=== PATIENT | male | born 1925 | race Caucasian/White ===

== ENCOUNTER 2017-05-18 06:49 | Emergency (ER) | payer MEDICARE, OTHER ==
--- NOTE | 2017-05-18 08:26 | RAD ---
INDICATION: Trauma bilateral hip pain. COMPARISON: There are no prior studies available for comparison. TECHNIQUE: An AP view of the pelvis and frontal and lateral views of both hips were obtained. FINDINGS: The bones are normal alignment. No fracture is seen. There is mild to moderate bilateral osteoarthritic change in the hips. IMPRESSION: NO EVIDENCE FOR FRACTURE, IF THE PATIENT'S SYMPTOMS PERSIST RECOMMEND FOLLOW-UP IMAGING.
--- NOTE | 2017-05-18 08:33 | RAD ---
INDICATION: Trauma, bilateral knee pain. TECHNIQUE: 3 views of both knees were obtained. FINDINGS: The patient is status post total bilateral knee replacement surgery. The bones and prostheses are in normal alignment. No fracture is seen. There is no gross evidence for loosening. IMPRESSION: STATUS POST TOTAL BILATERAL KNEE REPLACEMENT SURGERY, NO EVIDENCE FOR FRACTURE.
[2017-05-18 09:44] VITALS: BP 134/59
--- NOTE | 2017-05-19 09:09 | ED ---
Titi Voss Thomas scribed for Dimitris Ha MD on 05/18/17 at 0724 . Lower Extremity - HPI Summary HPI Summary: The patient is an 89 year old male with dementia brought in by ambulance after he was found on the floor at his bedside after a presumed fall. He has some pain in the right hip. He has abrasions to his bilateral knees. LEVEL 5 CAVEAT: HPI LIMITED BY DEMENTIA - History of Current Complaint Chief Complaint: EDExtremityLower Stated Complaint: RT HIP PAIN Time Seen by Provider: 05/18/17 07:17 Hx Obtained From: EMS Hx From Patient Unobtainable Due To: Dementia Mechanism Of Injury: Fall From A Standing Position Pain Intensity: 0 Pain Scale Used: 0-10 Numeric Timing: Constant Location: Is Discrete @ - right hip pain Associated Signs And Symptoms: Positive: Other - abrasions bilateral knees. Negative: Fever - Allergies/Home Medications Allergies/Adverse Reactions: Allergies Allergy/AdvReac Type Severity Reaction Status Date / Time MS Penicillins [PCN] Allergy Intermediate Rash Verified 05/18/17 06:58 Home Medications: Home Medications Acetaminophen TAB* [Tylenol TAB*] 325 mg PO Q4H PRN 05/18/17 [History Confirmed 05/18/17] Carbidopa/Levodop 25/100 MG(*) [Sinemet 25/100 TAB(*)] 1 tab PO TID 05/18/17 [ History Confirmed 05/18/17] Cholecalciferol (Vitamin D3) [Vitamin D3] 1,000 unit PO DAILY 05/18/17 [History Confirmed 05/18/17] Fludrocortisone Acetate TAB* [Florinef TAB*] 0.1 mg PO DAILY 05/18/17 [History Confirmed 05/18/17] Magnesium Hydroxide LIQ* [Milk of Magnesia LIQ*] 30 ml PO DAILY PRN 05/18/17 [ History Confirmed 05/18/17] Multivitamins/Minerals TAB* [Theragran/minerals TAB*] 1 tab PO DAILY 05/18/17 [ History Confirmed 05/18/17] guaiFENesin [Guaifenesin] 10 ml PO Q4HR PRN 05/18/17 [History Confirmed 05/18/17 ] PMH/Surg Hx/FS Hx/Imm Hx History: Reports: Hx Kidney Stones - hx of Musculoskeletal History: Reports: Hx Arthritis - KNEES- HAD BILATERAL KNEE REPLACEMENTS, Hx Bursitis Sensory History: Reports: Hx Contacts or Glasses - RADING Denies: Hx Hearing Aid Opthamlomology History: Reports: Hx Contacts or Glasses - RADING Neurological History: Reports: Hx Dementia Psychiatric History: Comment Only: Other Psychiatric Issues/Disorders - DEMENTIA - Cancer History Cancer Type, 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 - Surgical History Surgery Procedure, Year, and Place: bilateral knee replacement; rotator cuff right Hx Anesthesia Reactions: No Infectious Disease History: Unable to Obtain/Confirm Infectious Disease History: Denies: Traveled Outside the [place] in Last 30 Days - Family History Known Family History: Positive: Unknown - FHx limited by dementia--LEVEL 5 CAVEAT - Social History Occupation: Unemployed Lives: [facility] Use Type: Reports: None Review of Systems Negative: Fever Positive: Other - Right hip pain All Other Systems Reviewed And Are Negative: No - Comments Additional Review of Systems Comments: LEVEL 5 CAVEAT: ROS LIMITED BY DEMENTIA Physical Exam - Summary Physical Exam Summary: VITAL SIGNS: Reviewed. GENERAL: Patient is an elderly male who is lying comfortable in the stretcher. Patient is not in any acute respiratory distress. HEAD AND FACE: No signs of trauma. No ecchymosis, hematomas or skull depressions. No sinus tenderness. EYES: PERRLA, EOMI x 2, No injected conjunctiva, no nystagmus. EARS: Hearing grossly intact. Ear canals and tympanic membranes are within normal limits. MOUTH: Oropharynx within normal limits. NECK: Supple, trachea is midline, no adenopathy, no JVD, no carotid bruit, no c- spine tenderness, neck with full ROM. CHEST: Symmetric, no tenderness at palpation LUNGS: Clear to auscultation bilaterally. No wheezing or crackles. CVS: Regular rate and rhythm, S1 and S2 present, no murmurs or gallops appreciated. ABDOMEN: Soft, non-tender. No signs of distention. No rebound no guarding, and no masses palpated. Bowel sounds are normal. EXTREMITIES: He has abrasions in both knees. There is some pain in the right hip. Otherwise, FROM in all other major joints, no edema, no cyanosis or clubbing. NEURO: Alert. Speech is normal and follows commands. SKIN: Dry and warm LEVEL 5 CAVEAT: PHYSICAL EXAM LIMITED BY DEMENTIA Triage Information Reviewed: Yes Vital Signs On Initial Exam: Initial Vitals Temp Pulse Resp BP Pulse Ox 98.7 F 94 16 127/57 97 05/18/17 06:50 05/18/17 06:50 05/18/17 06:50 05/18/17 06:50 05/18/17 06:50 Vital Signs Reviewed: Yes Diagnostics - Vital Signs Vital Signs Temp Pulse Resp BP Pulse Ox 05/18/17 06:56 93 97 05/18/17 06:55 117/55 05/18/17 06:50 98.7 F 94 16 127/57 97 - Laboratory Lab Statement: Any lab studies that have been ordered have been reviewed, and results considered in the medical decision making process. - Radiology Bilateral Hip XR Xray Interpretation: No Acute Changes - NO EVIDENCE FOR FRACTURE, IF THE PATIENT 'S SYMPTOMS PERSIST RECOMMEND FOLLOW-UP IMAGING. Dr. Ha has reviewed this report. Radiology Interpretation Completed By: Radiologist Bilateral Knee XR Xray Interpretation: No Acute Changes - STATUS POST TOTAL BILATERAL KNEE REPLACEMENT SURGERY, NO EVIDENCE FOR FRACTURE. Dr. Ha has reviewed this report. Radiology Interpretation Completed By: Radiologist Lower Extremity Course/Dx - Course Assessment/Plan: The patient is an 89 year old male with dementia brought in by ambulance after he was found on the floor at his bedside after a presumed fall. He has some pain in the right hip. He has abrasions to his bilateral knees. X- ray shows no fracture or dislocation. The patient is able to move his extremities with mild pain, probably secondary to trauma. Since there is no fracture or dislocation, the patient will be discharged home to follow up with primary care. If the pain persists, then the patient should return to the ED or possibly do a CT to rule out a healing fracture. - Diagnoses Provider Diagnoses: Accidental fall, Knee pain Discharge - Discharge Plan Condition: Stable Disposition: HOME Patient Education Materials: Fall Prevention for Older Adults (ED), Knee Pain ( ED) Referrals: Dimitris Everett MD [Medical Doctor] - 3 Days Additional Instructions: Follow up with Dr. Everett in the next three days. Return to the emergency department for any new or worsening symptoms. The documentation as recorded by the Titi patrick Thomas accurately reflects the service I personally performed and the decisions made by Leland rivera Walter, MD.
== END 2017-05-18 09:43 | disposition home or self-care (01) ==
LOC: ED 06:49
DX: S80.212A Abrasion, left knee, initial encounter (principal); S80.211A Abrasion, right knee, initial encounter; W19.XXXA Unspecified fall, initial encounter; Y92.9 Unspecified place or not applicable; Z88.0 Allergy status to penicillin; Z96.653 Presence of artificial knee joint, bilateral
CPT/HCPCS: 73523; 99282

== ENCOUNTER 2017-08-01 21:12 | Inpatient (IN) | payer MEDICARE, OTHER ==
[2017-08-01] MEDS ORDERED: Amiodarone 360 MG IVPREMIX* 360 MG/200 ML BAG IV ONE (21:21)
[2017-08-01] MEDS ORDERED: NS 0.9% 1000 ML* 1,000 ML IV ONE (21:21)
[2017-08-01] MEDS ORDERED: Tetan/Diph/Pertus SYR(Tdap)* 0.5 ML SYR(BOOSTRIX) use SYR IM ONE (21:21)
[2017-08-01] MEDS ORDERED: Amiodarone 150 MG IVPREMIX* 150 MG/100 ML BAG IV ONE (21:21)
[2017-08-01] MEDS ORDERED: fentaNYL* 50 MCG/ML 2 ML VIAL (100 MCG VIAL) IV ONE (21:21)
[2017-08-01 21:46] LABS: ABS Basophils 0.1 10^3/ul (0-0.2); ABS Eosinophils 0.1 10^3/ul (0-0.6); ABS Monocytes 0.7 10^3/ul (0-0.8); ABS Neutrophils 5.3 10^3/ul (1.5-7.7); ABS Nucleated RBC 0 10^3/ul; Eosinophil % 1.3 % (0-6); Hematocrit 36 % (42-52); Hemoglobin 12.1 g/dl (14.0-18.0); Lymphocyte % 14.2 % (25-47); Mean Corpuscular HGB Conc 33 g/dl (31-36); Mean Corpuscular Hemoglobin 30 pg (27-31); Mean Corpuscular Volume 88 fL (80-94); Mean Platelet Volume 10.4 um3 (7.4-10.4); Nucleated Red Blood Cells % 0.1; Platelet Count 151 10^3/ul (150-450); Red Blood Count 4.09 10^6/ul (4.0-5.4); Red Cell Distribution Width 15 % (10.5-15); White Blood Count 7.1 10^3/ul (3.5-10.8)
[2017-08-01 22:03] LABS: INR 1.14 (0.77-1.02)
[2017-08-01 22:07] LABS: EGFR Non-African American 50.2 (>60)
--- NOTE | 2017-08-01 23:57 | ED ---
Lower Extremity - HPI Summary HPI Summary: 89-year-old male with extensive comorbidity to include parkinsonism and dementia presents by ambulance after fall in the snf. He is complaining of pain in his right hip. He has a dressed wound on his right ear. He denies any headache, chest or abdominal pain. The history is extremely limited due to his dementia. His mobility is poor due to his parkinsonism. - History of Current Complaint Chief Complaint: EDExtremityLower Stated Complaint: FALL Time Seen by Provider: 08/01/17 21:20 Hx Obtained From: Patient, EMS Pain Intensity: 8 - Allergies/Home Medications Allergies/Adverse Reactions: Allergies Allergy/AdvReac Type Severity Reaction Status Date / Time Penicillins Allergy Unknown Verified 08/01/17 21:37 Reaction Details Home Medications: Home Medications Acetaminophen TAB* [Tylenol TAB*] 650 mg PO Q4H PRN 08/01/17 [History Confirmed 08/01/17] Carbidopa/Levodop 25/100 MG(*) [Sinemet 25/100 TAB(*)] 1 tab PO TID 08/01/17 [ History Confirmed 08/01/17] Cholecalciferol TAB* [Vitamin D TAB*] 1,000 unit PO DAILY 08/01/17 [History Confirmed 08/01/17] Fludrocortisone Acetate TAB* [Florinef TAB*] 0.1 mg PO DAILY 08/01/17 [History Confirmed 08/01/17] Levofloxacin TAB* [Levaquin TAB*] 500 mg PO DAILY 08/01/17 [History Confirmed ] Magnesium Hydroxide LIQ* [Milk of Magnesia LIQ*] 30 ml PO DAILY PRN 08/01/17 [ History Confirmed 08/01/17] Multivitamins/Minerals TAB* [Theragran/minerals TAB*] 1 tab PO DAILY 08/01/17 [ History Confirmed 08/01/17] Potassium Chlor TAB* [Klor Con ER TAB*] 20 meq PO DAILY 08/01/17 [History Confirmed 08/01/17] PMH/Surg Hx/FS Hx/Imm Hx Previously Healthy: No - Parkinson's disease, dementia History: Reports: Hx Kidney Stones - hx of Musculoskeletal History: Reports: Hx Arthritis - KNEES- HAD BILATERAL KNEE REPLACEMENTS, Hx Bursitis Sensory History: Reports: Hx Contacts or Glasses - RADING Denies: Hx Hearing Aid Opthamlomology History: Reports: Hx Contacts or Glasses - RADING Neurological History: Denies: Other Neuro Impairments/Disorders - dementia Psychiatric History: Comment Only: Other Psychiatric Issues/Disorders - DEMENTIA - Cancer History Cancer Type, 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 Negative: Headache All Other Systems Reviewed And Are Negative: Yes Physical Exam Triage Information Reviewed: Yes Vital Signs On Initial Exam: Initial Vitals Pulse Resp Pulse Ox 115 16 92 08/01/17 21:19 08/01/17 21:19 08/01/17 21:19 Vital Signs Reviewed: Yes Completion Of Physical Exam Limited Due To: Dementia Appearance: Positive: Ill-Appearing, Pain Distress, Thin, Signs of Trauma Skin: Positive: Other - Skin tear in the posterior of the pinna of the right ear. Mild amount of oozing. Head/Face: Positive: Normal Head/Face Inspection Eyes: Positive: Other: - Pupils are small and sluggish ENT: Positive: Normal ENT inspection, Hearing grossly normal Neck: Positive: Supple, Nontender Respiratory/Lung Sounds: Positive: Other - Diminished globally. Mild scattered rhonchi Cardiovascular: Negative: Normal - Irregularly irregular with runs of PVCs or ventricular tachycardia on the monitor Abdomen Description: Positive: Nontender Musculoskeletal: Positive: Other - Pain with manipulation of both lower extremities but patient complains subjectively of pain in the right hip. No foreshortening. Neurological: Positive: Other - Global weakness without focality. Alert and oriented to person and place only. Unable to ambulate due to hip pain Psychiatric: Negative: Affect/Mood Appropriate - Flat affect Diagnostics - Vital Signs Vital Signs Temp Pulse Resp BP Pulse Ox 08/01/17 23:35 106 29 148/99 84 08/01/17 23:09 18 08/01/17 22:42 96 19 119/93 90 08/01/17 22:19 99 15 138/95 96 08/01/17 22:04 98 F 90 18 126/85 96 08/01/17 22:02 101 15 126/85 95 08/01/17 22:00 98 15 97 08/01/17 21:57 98 15 134/71 96 08/01/17 21:50 106 15 141/110 97 08/01/17 21:45 17 08/01/17 21:20 103 16 115/82 93 08/01/17 21:19 115 16 92 - Laboratory Lab Results: Lab Results 08/01/17 08/01/17 08/01/17 Range/Units 21:35 21:35 21:35 WBC 7.1 (3.5-10.8) 10^3/ul RBC 4.09 (4.0-5.4) 10^6/ul Hgb 12.1 L (14.0-18.0) g/dl Hct 36 L (42-52) % MCV 88 (80-94) fL MCH 30 (27-31) pg MCHC 33 (31-36) g/dl RDW 15 (10.5-15) % Plt Count 151 (150-450) 10^3/ul MPV 10.4 (7.4-10.4) um3 Neut % (Auto) 74.0 (38-83) % Lymph % (Auto) 14.2 L (25-47) % Traill % (Auto) 9.6 H (0-7) % Eos % (Auto) 1.3 (0-6) % Baso % (Auto) 0.9 (0-2) % Absolute Neuts (auto) 5.3 (1.5-7.7) 10^3/ul Absolute Lymphs (auto) 1.0 (1.0-4.8) 10^3/ul Absolute Monos (auto) 0.7 (0-0.8) 10^3/ul Absolute Eos (auto) 0.1 (0-0.6) 10^3/ul Absolute Basos (auto) 0.1 (0-0.2) 10^3/ul Absolute Nucleated RBC 0 10^3/ul Nucleated RBC % 0.1 INR (Anticoag Therapy) 1.14 H (0.77-1.02) APTT 29.8 (26.0-36.3) seconds Sodium 144 (139-145) mmol/L Potassium 3.6 (3.5-5.0) mmol/L Chloride 108 (101-111) mmol/L Carbon Dioxide 28 (22-32) mmol/L Anion Gap 8 (2-11) mmol/L BUN 18 (6-24) mg/dL Creatinine 1.34 H (0.67-1.17) mg/dL Est GFR ( Amer) 64.5 (>60) Est GFR (Non-Af Amer) 50.2 (>60) BUN/Creatinine Ratio 13.4 (8-20) Glucose 148 H (70-100) mg/dL Lactic Acid (0.5-2.0) mmol/L Calcium 9.7 (8.6-10.3) mg/dL Total Bilirubin 0.90 (0.2-1.0) mg/dL AST 22 (13-39) U/L ALT 8 (7-52) U/L Alkaline Phosphatase 70 (34-104) U/L Total Creatine Kinase 83 (10-223) U/L Troponin I 0.06 H* (<0.04) ng/mL Total Protein 6.6 (6.4-8.9) g/dL Albumin 3.9 (3.2-5.2) g/dL Globulin 2.7 (2-4) g/dL Albumin/Globulin Ratio 1.4 (1-3) Blood Type Antibody Screen 08/01/17 08/01/17 Range/Units 21:35 21:35 WBC (3.5-10.8) 10^3/ul RBC (4.0-5.4) 10^6/ul Hgb (14.0-18.0) g/dl Hct (42-52) % MCV (80-94) fL MCH (27-31) pg MCHC (31-36) g/dl RDW (10.5-15) % Plt Count (150-450) 10^3/ul MPV (7.4-10.4) um3 Neut % (Auto) (38-83) % Lymph % (Auto) (25-47) % Traill % (Auto) (0-7) % Eos % (Auto) (0-6) % Baso % (Auto) (0-2) % Absolute Neuts (auto) (1.5-7.7) 10^3/ul Absolute Lymphs (auto) (1.0-4.8) 10^3/ul Absolute Monos (auto) (0-0.8) 10^3/ul Absolute Eos (auto) (0-0.6) 10^3/ul Absolute Basos (auto) (0-0.2) 10^3/ul Absolute Nucleated RBC 10^3/ul Nucleated RBC % INR (Anticoag Therapy) (0.77-1.02) APTT (26.0-36.3) seconds Sodium (139-145) mmol/L Potassium (3.5-5.0) mmol/L Chloride (101-111) mmol/L Carbon Dioxide (22-32) mmol/L Anion Gap (2-11) mmol/L BUN (6-24) mg/dL Creatinine (0.67-1.17) mg/dL Est GFR ( Amer) (>60) Est GFR (Non-Af Amer) (>60) BUN/Creatinine Ratio (8-20) Glucose (70-100) mg/dL Lactic Acid 1.7 (0.5-2.0) mmol/L Calcium (8.6-10.3) mg/dL Total Bilirubin (0.2-1.0) mg/dL AST (13-39) U/L ALT (7-52) U/L Alkaline Phosphatase (34-104) U/L Total Creatine Kinase (10-223) U/L Troponin I (<0.04) ng/mL Total Protein (6.4-8.9) g/dL Albumin (3.2-5.2) g/dL Globulin (2-4) g/dL Albumin/Globulin Ratio (1-3) Blood Type O Positive Antibody Screen Negative Result Diagrams: 08/01/17 21:35 08/01/17 21:35 Lab Statement: Any lab studies that have been ordered have been reviewed, and results considered in the medical decision making process. - Radiology chest x-ray Xray Interpretation: Positive (See Comments) Radiology Interpretation Completed By: ED Physician No standard instances Xray Interpretation: Positive (See Comments) - Right hip and pelvis films: Left femoral neck fracture Radiology Interpretation Completed By: ED Physician - EKG No standard instances Cardiac Rate: Tachycardia - 101 EKG Rhythm: Sinus Tachycardia - With short run of PVCs or VT ST Segment: Non-Specific Ectopy: PVCs EKG Interpretation: sinus tachycardia with runs of nonsustained V. tach Re-Evaluation - Re-Evaluation First Eval Change: Unchanged Lower Extremity Course/Dx - Course Course Of Treatment: Patient is critically ill-appearing with runs of V. tach likely causative of his fall. He also has a hip fracture in his left side despite complaint of pain in the right side. Orthopedics was consulted and saw the patient in the ER. Chest x-ray looks like metastatic disease. This conveyed to the hospitalist who is admitting. The patient was also placed on amiodarone drip after getting a 150 mg bolus to start. 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 He likely will require ICU care for these issues. - Diagnoses Provider Diagnoses: Fracture of femoral neck, left, closed, Ventricular tachycardia, non-sustained , Lung metastases - Physician Notifications Discussed Care Of Patient With: Obdulia Shannon - orthopedic surgeon saw in the ER. Hospitalist Dr. Nascimento will admit Instructed by Provider To: Admit As Inpatient - Critical Care Time Critical Care Time: 30-74 min - Critical care time is exclusive of separately billable procedures Discharge - Sign-Out/Discharge Documenting (check all that apply): Discharge/Admit/Transfer - Discharge Plan Condition: Guarded Disposition: ADMITTED TO [facility] Referrals: Lulu Jules MD [Primary Care Provider] - - Billing Disposition and Condition Condition: GUARDED Disposition: [facility] [place]
[2017-08-02] MEDS ORDERED: Acetaminophen TAB* 325 MG PO PRN (00:28)
[2017-08-02] MEDS ORDERED: Ondansetron INJ* 2 MG/ML VIAL IV PRN (00:29)
[2017-08-02] MEDS ORDERED: CMCS: Melatonin (NF) 3 MG TAB PO PRN (00:29)
[2017-08-02] MEDS ORDERED: traMADol TAB* 50 MG PO PRN (00:29)
[2017-08-02] MEDS ORDERED: oxyCODONE TAB* 5 MG TAB PO PRN (00:29)
[2017-08-02] MEDS ORDERED: NS 0.9% 1000 ML* 1,000 ML IV SCH (00:30)
[2017-08-02] MEDS ORDERED: Levofloxacin 750 MG IVPREMIX(* 750 MG/150 ML BAG IVPB SCH (01:45)
--- NOTE | 2017-08-02 02:00 | CONS ---
EMERGENCY ROOM CONSULTATION NOTE: DATE OF CONSULTATION: 08/01/17 Thank you for this orthopedic consultation. CHIEF COMPLAINT: Right hip pain. HISTORY OF PRESENT ILLNESS: Mr. Medeiros is an 89-year-old gentleman who reports the acute onset of right hip pain. He has Parkinson's and dementia, so history is difficult to obtain. The patient denies a fall, but staff at [facility] report a fall. He reports that he normally ambulates independently. He reported right hip pain and was unable to ambulate after the fall. He was brought to [facility]. I am called for a femoral neck fracture by the ED physician. PAST MEDICAL HISTORY: 1. Dementia. 2. Parkinson's disease. 3. Osteoarthritis. PAST SURGICAL HISTORY: 1. ACL repair, left knee. 2. Shoulder surgery, unspecified type. 3. Prostate surgery, unspecified type. 4. Sinus surgery, unspecified type. MEDICATION LIST: 1. Sinemet 25/100 po TID 2. Floricef 0.1 mg po qdaily 3. Levaquin 500 mg po qdaily 4. Potassium chloride 20 meq po qdaily ALLERGIES: penicillin FAMILY HISTORY: Negative or noncontributory. SOCIAL HISTORY: The patient is retired and reports he lives with his at [facility]. No tobacco, alcohol or recreational drug use. The patient reports he ambulates independently. REVIEW OF SYSTEMS: Positive for right hip pain, left hip pain. The patient reports feeling chills and cold, he denies chest pain, heart palpitations, shortness of breath, nausea, vomiting, headache or dizziness. Otherwise, review of systems is negative or not relevant. PHYSICAL EXAM: Vital Signs: Temperature 98, heart rate 94, blood pressure 148/ 99. HEENT: Atraumatic, normocephalic. Pupils are equal and reactive to light. Neck: Trachea midline. Neck: Supple. Chest: Unlabored breathing. Abdomen : Soft, nontender, nondistended. Bilateral upper extremities; no open wounds, no bony tenderness to palpation. 4+/5 merchant mariner strength, 2+ palpable radial pulses. Bilateral lower extremity exam shows skin to be intact. There is a healed left midline knee incision. No palpable masses or hematomas. I can flex both hips to about 90 degrees before he reports some pain. I can rotate 0 degrees internal rotation bilaterally, 35 degrees external rotation bilaterally with minimal pain. When I log roll the patient's leg, there is minimal pain. He demonstrates dorsiflexion and plantar flexion strength. 2+ palpable DP pulses. He reports full sensation to light touch in all nerve distributions. DIAGNOSTIC STUDIES/LAB DATA: Laboratory values drawn on 08/01/17 show white blood cell 7.1, hematocrit 36, platelets 151,000. No left shift. INR 1.14. Sodium 144, potassium 3.6, chloride 108. BUN and creatinine 18 and 1.34 respectively. Troponin 0.06. Alk phos is 70. Radiographs have poor AP pelvis and AP lateral view of the right hip to review. The patient's AP pelvis shows no obvious fracture of the right hip. There is an abnormal rotation in the left hip. I cannot exclude a femoral neck fracture. AP and lateral views of the right hip show some arthritic changes, but no obvious fracture of the right hip. There is a chest x-ray without a formal Radiology read that does show possible tumor metastasis when reviewed with the hospitalist. ASSESSMENT AND PLAN: Mr. Medeiros is an 89-year-old gentleman from [facility] with dementia and Parkinson's disease. History is limited tonight. He reports he normally ambulates independently. He had a fall at [facility] per reports and demonstrated right hip pain after with inability to ambulate. Although the patient reports pain in the hips, his range of motion is abnormally good for a patient with a hip fracture. Hospitalist team and I discussed this. Due to possibility of undiagnosed cancer and metastasis to the lungs, they are going to obtain a CT of the chest, abdomen, and pelvis. Evaluation of the CT of the pelvis will give us a definitive answer on whether or not the patient has any hip pathology or other nondisplaced fractures. I will of course review this immediately. For now, he will be on bedrest. He has a Feliciano catheter. He will have p.r.n. analgesia. The hospitalist team was admitting and of course he will be worked up for the abnormal chest x-ray and recent V-tach in the emergency room. Orthopedics will be glad to follow. ADDENDUM: Pelvic CT is reviewed and shows no fracture of the bilateral femoral neck. Minimally displaced right superior and inferior rami fractures are noted. The patient should be wbat RLE with mobilization with PT/OT when medically stable. Orthopedics will follow. [id number]/CPS #: [id number] FADI
[2017-08-02 04:41] LABS: ABS Basophils 0.1 10^3/ul (0-0.2); ABS Eosinophils 0 10^3/ul (0-0.6); ABS Lymphocytes 0.7 10^3/ul (1.0-4.8); ABS Monocytes 0.7 10^3/ul (0-0.8); ABS Neutrophils 9.8 10^3/ul (1.5-7.7); ABS Nucleated RBC 0 10^3/ul; Eosinophil % 0.1 % (0-6); Hematocrit 33 % (42-52); Hemoglobin 10.7 g/dl (14.0-18.0); Lymphocyte % 5.9 % (25-47); Mean Corpuscular HGB Conc 33 g/dl (31-36); Mean Corpuscular Hemoglobin 29 pg (27-31); Mean Corpuscular Volume 89 fL (80-94); Nucleated Red Blood Cells % 0; Platelet Count 135 10^3/ul (150-450); Red Cell Distribution Width 16 % (10.5-15); White Blood Count 11.3 10^3/ul (3.5-10.8)
[2017-08-02] MEDS: Amiodarone 360 MG IVPREMIX* 360 MG/200 ML BAG IV SCH ×2 (04:47→17:34)
[2017-08-02] MEDS: Omeprazole CAP* 20 MG PO SCH (04:55)
[2017-08-02 04:57] LABS: EGFR Non-African American 51.5 (>60)
--- NOTE | 2017-08-02 05:36 | HP ---
H&P (Free Text) History and Physical: PCP: Harini Jules MD Date/Time: 08/01/2017 5029 CC: fall, R hip pain HPI: Mr Medeiros is an 89YO male resident of [facility] Parkinsonism, Alzheimer's , adrenal insufficiency, & squamous cell CA of the mandible presents after a fall with complaint of R hip pain. Upon my evaluation, he does not recall the events of the evening or why he is here. He denied pain or other complaint. While in the ED, he proceeded to dislodge IVs and pull out his hager resulting in moderate urethral bleeding. After arriving to the ICU, nurses were unable to replace the hager. I attempted to place a 3-way hager in case CBI was needed, but could not. Likewise, I was unable to place a crudet tip hager. Bladder scan revealed 150-200cc volume. Shortly later, ICU nursing reported he was able to spontaneously urinate. Sundar Shannon MD orthopedics evaluated in ED & will follow. He received a chest XRY suspicious for metastatic disease given the absence of findings suggesting infection. A CT chest/abd/pel W will be ordered and as his pelvic films reveal no overt FX, will evaluate for occult FX. While in the ED he had repetitive bursts of NSVT prompting initiation of amiodarone bolus/GTT with good suppression. PMedHx Parkinsonism Alzheimer's adrenal insufficiency squamous cell CA of mandible BPH s/p TURP Ambulatory Orders Acetaminophen TAB* [Tylenol TAB*] 650 mg PO Q4H PRN 08/01/17 Carbidopa/Levodop 25/100 MG(*) [Sinemet 25/100 TAB(*)] 1 tab PO TID 08/01/17 Cholecalciferol TAB* [Vitamin D TAB*] 1,000 unit PO DAILY 08/01/17 Fludrocortisone Acetate TAB* [Florinef TAB*] 0.1 mg PO DAILY 08/01/17 Levofloxacin TAB* [Levaquin TAB*] 500 mg PO DAILY 08/01/17 Magnesium Hydroxide LIQ* [Milk of Magnesia LIQ*] 30 ml PO DAILY PRN 08/01/17 Multivitamins/Minerals TAB* [Theragran/minerals TAB*] 1 tab PO DAILY 08/01/17 Potassium Chlor TAB* [Klor Con ER TAB*] 20 meq PO DAILY 08/01/17 Allergies Penicillins Allergy (Verified 08/01/17 21:37) Unknown Reaction Details SocHx: no tobacco, alcohol, or recreational drugs; , resides at [place]; retired; DNR code status FamHx: unobtainable ROS: as above, otherwise reviewed and all were negative vitals: Vital Signs Temp 37.4 C 08/02/17 04:00 Pulse 83 08/02/17 05:01 Resp 24 08/02/17 05:01 BP 115/100 08/02/17 05:01 Pulse Ox 89 08/02/17 05:01 Intake & Output 08/01/17 08/01/17 08/02/17 11:59 23:59 11:59 Intake Total 100 1200 Balance 100 1200 Weight 77.111 kg Intake: IV Fluids 100 1200 Constitutional: NAD, normally developed, well-nourished elderly white male HEENM: atraumatic; sclera/conjunctiva: anicteric/clear; hearing: clinically mild to moderately decreased; oropharynx: clear, moist Neck: soft tissue: non-tender; thyroid: normal Pulmonary: diminished bilaterally, good aeration, no accessory muscle use CV: RR/RR, normal S1S2, no carotid bruit, no jugular venous distention, 2+ B DP/ PT, trace BLE edema Abdominal: soft, non-distended, non-tender, no rebound/guarding/rigidity, normoactive bowel sounds, no hepatosplenomegaly or masses, no costovertebral angle tenderness Musculoskeletal: general: grossly intact with reasonable painless ROM, no overt deformity Integumental: small skin tear posterior R auricle Psychiatric orientation: AA&O to person only affect: calm mood: acquiescent eye contact: poor content: unreliable memory: markedly impaired to recent responses: mildly slowed insight: poor Testing: Lab Results 08/01/17 08/01/17 08/01/17 Range/Units 21:35 21:35 21:35 WBC 7.1 (3.5-10.8) 10^3/ul RBC 4.09 (4.0-5.4) 10^6/ul Hgb 12.1 L (14.0-18.0) g/dl Hct 36 L (42-52) % MCV 88 (80-94) fL MCH 30 (27-31) pg MCHC 33 (31-36) g/dl RDW 15 (10.5-15) % Plt Count 151 (150-450) 10^3/ul MPV 10.4 (7.4-10.4) um3 Neut % (Auto) 74.0 (38-83) % Lymph % (Auto) 14.2 L (25-47) % [place] % (Auto) 9.6 H (0-7) % Eos % (Auto) 1.3 (0-6) % Baso % (Auto) 0.9 (0-2) % Absolute Neuts (auto) 5.3 (1.5-7.7) 10^3/ul Absolute Lymphs (auto) 1.0 (1.0-4.8) 10^3/ul Absolute Monos (auto) 0.7 (0-0.8) 10^3/ul Absolute Eos (auto) 0.1 (0-0.6) 10^3/ul Absolute Basos (auto) 0.1 (0-0.2) 10^3/ul Absolute Nucleated RBC 0 10^3/ul Nucleated RBC % 0.1 INR (Anticoag Therapy) 1.14 H (0.77-1.02) APTT 29.8 (26.0-36.3) seconds Sodium 144 (139-145) mmol/L Potassium 3.6 (3.5-5.0) mmol/L Chloride 108 (101-111) mmol/L Carbon Dioxide 28 (22-32) mmol/L Anion Gap 8 (2-11) mmol/L BUN 18 (6-24) mg/dL Creatinine 1.34 H (0.67-1.17) mg/dL Est GFR ( Amer) 64.5 (>60) Est GFR (Non-Af Amer) 50.2 (>60) BUN/Creatinine Ratio 13.4 (8-20) Glucose 148 H (70-100) mg/dL Lactic Acid (0.5-2.0) mmol/L Calcium 9.7 (8.6-10.3) mg/dL Magnesium 2.0 (1.9-2.7) mg/dL Total Bilirubin 0.90 (0.2-1.0) mg/dL AST 22 (13-39) U/L ALT 8 (7-52) U/L Alkaline Phosphatase 70 (34-104) U/L Total Creatine Kinase 83 (10-223) U/L Troponin I 0.06 H* (<0.04) ng/mL Total Protein 6.6 (6.4-8.9) g/dL Albumin 3.9 (3.2-5.2) g/dL Globulin 2.7 (2-4) g/dL Albumin/Globulin Ratio 1.4 (1-3) Blood Type Antibody Screen 08/01/17 08/01/17 08/02/17 Range/Units 21:35 21:35 04:30 WBC (3.5-10.8) 10^3/ul RBC (4.0-5.4) 10^6/ul Hgb (14.0-18.0) g/dl Hct (42-52) % MCV (80-94) fL MCH (27-31) pg MCHC (31-36) g/dl RDW (10.5-15) % Plt Count (150-450) 10^3/ul MPV (7.4-10.4) um3 Neut % (Auto) (38-83) % Lymph % (Auto) (25-47) % [place] % (Auto) (0-7) % Eos % (Auto) (0-6) % Baso % (Auto) (0-2) % Absolute Neuts (auto) (1.5-7.7) 10^3/ul Absolute Lymphs (auto) (1.0-4.8) 10^3/ul Absolute Monos (auto) (0-0.8) 10^3/ul Absolute Eos (auto) (0-0.6) 10^3/ul Absolute Basos (auto) (0-0.2) 10^3/ul Absolute Nucleated RBC 10^3/ul Nucleated RBC % INR (Anticoag Therapy) (0.77-1.02) APTT (26.0-36.3) seconds Sodium 141 (139-145) mmol/L Potassium TNP (3.5-5.0) mmol/L Chloride 107 (101-111) mmol/L Carbon Dioxide 26 (22-32) mmol/L Anion Gap 8 (2-11) mmol/L BUN 18 (6-24) mg/dL Creatinine 1.31 H (0.67-1.17) mg/dL Est GFR ( Amer) 66.3 (>60) Est GFR (Non-Af Amer) 51.5 (>60) BUN/Creatinine Ratio 13.7 (8-20) Glucose 170 H (70-100) mg/dL Lactic Acid 1.7 (0.5-2.0) mmol/L Calcium 9.1 (8.6-10.3) mg/dL Magnesium (1.9-2.7) mg/dL Total Bilirubin (0.2-1.0) mg/dL AST (13-39) U/L ALT (7-52) U/L Alkaline Phosphatase (34-104) U/L Total Creatine Kinase (10-223) U/L Troponin I 0.13 H* (<0.04) ng/mL Total Protein (6.4-8.9) g/dL Albumin (3.2-5.2) g/dL Globulin (2-4) g/dL Albumin/Globulin Ratio (1-3) Blood Type O Positive Antibody Screen Negative 08/02/17 Range/Units 04:30 WBC 11.3 H (3.5-10.8) 10^3/ul RBC 3.70 L (4.0-5.4) 10^6/ul Hgb 10.7 L (14.0-18.0) g/dl Hct 33 L (42-52) % MCV 89 (80-94) fL MCH 29 (27-31) pg MCHC 33 (31-36) g/dl RDW 16 H (10.5-15) % Plt Count 135 L (150-450) 10^3/ul MPV 10.0 (7.4-10.4) um3 Neut % (Auto) 86.6 H (38-83) % Lymph % (Auto) 5.9 L (25-47) % [place] % (Auto) 6.3 (0-7) % Eos % (Auto) 0.1 (0-6) % Baso % (Auto) 1.1 (0-2) % Absolute Neuts (auto) 9.8 H (1.5-7.7) 10^3/ul Absolute Lymphs (auto) 0.7 L (1.0-4.8) 10^3/ul Absolute Monos (auto) 0.7 (0-0.8) 10^3/ul Absolute Eos (auto) 0 (0-0.6) 10^3/ul Absolute Basos (auto) 0.1 (0-0.2) 10^3/ul Absolute Nucleated RBC 0 10^3/ul Nucleated RBC % 0 INR (Anticoag Therapy) (0.77-1.02) APTT (26.0-36.3) seconds Sodium (139-145) mmol/L Potassium (3.5-5.0) mmol/L Chloride (101-111) mmol/L Carbon Dioxide (22-32) mmol/L Anion Gap (2-11) mmol/L BUN (6-24) mg/dL Creatinine (0.67-1.17) mg/dL Est GFR ( Amer) (>60) Est GFR (Non-Af Amer) (>60) BUN/Creatinine Ratio (8-20) Glucose (70-100) mg/dL Lactic Acid (0.5-2.0) mmol/L Calcium (8.6-10.3) mg/dL Magnesium (1.9-2.7) mg/dL Total Bilirubin (0.2-1.0) mg/dL AST (13-39) U/L ALT (7-52) U/L Alkaline Phosphatase (34-104) U/L Total Creatine Kinase (10-223) U/L Troponin I (<0.04) ng/mL Total Protein (6.4-8.9) g/dL Albumin (3.2-5.2) g/dL Globulin (2-4) g/dL Albumin/Globulin Ratio (1-3) Blood Type Antibody Screen ECG, personally reviewed: sinus tachycardia rate 101 w/ recurrent short-bursts of VT, mild ST depression V4-6 CXR, personally reviewed: B patchy infiltrate concerning for metastatic disease given his HX, pneumonia cannot be excluded CT brain WO, personally reviewed: IMPRESSION: Scalp laceration without skull fracture or intracranial hemorrhage CT C-spine WO: IMPRESSION: No fracture. Suspected large bilateral pleural effusions can be further evaluated with chest radiographs or CT. XRY pelvis & R hip, personally reviewed: no obvious FX of painful R hip, concern for painless FX L hip Impression: 89M presenting with fall & R hip pain which appears to be well controlled found to be having recurrent short bursts of VT, no obvious hip FX, positive urethral trauma 2nd self-D/C'd hager catheter, & abnormal CXR concerning for metastatic disease DIAGNOSIS & PLAN Primary fall & R hip pain : no obvious hip FX : Sundar Shannon MD orthopedic surgery consulted in ED, will follow : pain control : CT pelvis to evaluate for occult FX : supportive care recurrent short bursts of VT : amodarone bolus/GTT : consider cardiology consult in AM urethral trauma 2nd self-D/C'd hager catheter : Q2H bladder scans to evaluation for excessive distention : if unable to adequately void or if bleeding continues, consider urology consult in AM : recheck H&H in AM abnormal CXR : concerning for metastatic disease given HX SCCA of mandible & absence of evidence of infection : CT chest/abd/pel W : empiric IV levofloxacin : blood & sputum CXs : check Legionella & S pneumo urinary antigens : check rapid influenza elevated troponin : suspect demand ischemia : telemetry : trend Secondary Parkinsonism : review meds once reconciled Alzheimer's : review meds once reconciled CKD stg 3b : periodic monitoring Admission Rational: inpatient for recurrent NSVT, elevated troponin, fall ? occult hip FX, abnormal CXR; inappropriate for outpatient setting DVTp: SCDs Code Status: DNR HCP:
[2017-08-02] MEDS ORDERED: Potassium Chloride LIQUID* 20 MEQ PACKET PO ONE (07:42)
--- NOTE | 2017-08-02 07:48 | RAD ---
HISTORY: Head injury COMPARISONS: MRI dated August 13, 2008 TECHNIQUE: Multiple contiguous axial CT scans were obtained of the head without intravenous contrast. FINDINGS: HEMORRHAGE/INFARCT: There is no hemorrhage or acute infarct. MASSES/SHIFT: There is no mass or shift. EXTRA-AXIAL SPACES: There are no extra-axial fluid collections. SULCI AND VENTRICLES: There is diffuse and proportional enlargement of the sulci and ventricles. CEREBRUM: There is hypoattenuation of the periventricular and subcortical white matter. BRAINSTEM: There are no focal parenchymal abnormalities. CEREBELLUM: There are no focal parenchymal abnormalities. VESSELS: The vessels are grossly normal. PARANASAL SINUSES: The paranasal sinuses are clear. ORBITS: The orbits are unremarkable. BONES AND SOFT TISSUE: No bone or soft tissue abnormalities are noted. OTHER: None IMPRESSION: NO ACUTE INTRACRANIAL PATHOLOGY. DIFFUSE INVOLUTIONAL CHANGE WITH CHRONIC SMALL VESSEL ISCHEMIC CHANGES.
--- NOTE | 2017-08-02 07:51 | RAD ---
HISTORY: Fall, head injury COMPARISONS: None relevant TECHNIQUE: Multiple contiguous axial CT scans were obtained of the cervical spine without intravenous contrast, with coronal and sagittal multiplanar reformations. FINDINGS: BRAIN: The visualized brain is unremarkable CENTRAL CANAL: Evaluation of the central canal is limited on CT technique; however, there is no obvious canalicular mass or epidural hemorrhage. ALIGNMENT: The alignment is normal, without subluxation or dislocation. VERTEBRAL BODIES: There is diffuse osteopenia. Is multilevel anterolateral marginal osteophyte formation. There is no displaced fracture. JOINTS: There is uncovertebral and facet osteoarthritis. There is osteoarthritis of the atlantoaxial articulation. MUSCULATURE: Unremarkable INTERVERTEBRAL DISCS: There is diffuse loss of intervertebral disc height. AXIAL IMAGES: C2-C3: There is no osseous neural foraminal narrowing or central canal stenosis. C3-C4: There is mild bilateral neural foraminal narrowing secondary to facet hypertrophy. There is no osseous central canal stenosis. C4-C5: There is bilateral facet hypertrophy, resulting in moderate right and mild left neural foraminal narrowing. There is no osseous central canal stenosis. C5-C6: There is bilateral uncovertebral hypertrophy. There is severe bilateral neural foraminal narrowing. There is no osseous central canal stenosis. C6-C7: There is bilateral uncovertebral hypertrophy. There is moderate bilateral neural foraminal narrowing. There is no significant central canal stenosis. C7-T1: There is bilateral facet hypertrophy. There is moderate bilateral neural foraminal narrowing. There is no osseous central canal stenosis. SOFT TISSUES: There is biapical pleural thickening. The prevertebral soft tissues are intact. OTHER: None. IMPRESSION: 1. OSTEOPENIA. 2. DEGENERATIVE DISC DISEASE AND OSTEOARTHRITIS. 3. THERE IS MULTILEVEL NEURAL FORAMINAL NARROWING DESCRIBED ABOVE. THERE IS NO OSSEOUS CENTRAL CANAL STENOSIS. 4. NO ACUTE OSSEOUS INJURY TO THE CERVICAL SPINE. 5. BIAPICAL PLEURAL THICKENING.
--- NOTE | 2017-08-02 07:56 | RAD ---
HISTORY: Hypoxia COMPARISONS: October 16, 2012 VIEWS: 1: frontal portable view of the chest at 10:45 PM FINDINGS: LINES AND TUBES: None. CARDIOMEDIASTINAL SILHOUETTE: The cardiomediastinal silhouette is normal for portable technique. PLEURA: There has been interval development of biapical pleural thickening. There is moderate left pleural effusion. LUNG PARENCHYMA: There is multifocal patchy alveolar opacification of the lungs bilaterally. ABDOMEN: The upper abdomen is clear. There is no subphrenic gas. BONES AND SOFT TISSUES: No bone or soft tissue abnormalities are noted. IMPRESSION: 1. MULTIFOCAL AIRSPACE DISEASE THROUGHOUT BOTH LUNGS. RECOMMEND FOLLOW-UP UNTIL RESOLUTION TO EXCLUDE UNDERLYING PULMONARY PARENCHYMAL PATHOLOGY. 2. BIAPICAL PLEURAL THICKENING. 3. MODERATE LEFT PLEURAL EFFUSION.
--- NOTE | 2017-08-02 07:59 | RAD ---
HISTORY: Fall, injury, right upper leg injury COMPARISONS: May 18, 2017 VIEWS: 4, Frontal view of the pelvis with frontal and frog-leg views of the right hip FINDINGS: BONE DENSITY: There is diffuse osteopenia. BONES: There is no appreciable left-sided fracture. There is a slightly displaced fracture through the right superior pubic ramus. There is no appreciable fracture of the right hip. The sacral arches are intact. JOINTS: There is mild osteoarthritis of the hips and SI joints bilaterally. ALIGNMENT: There is no dislocation. SOFT TISSUES: Unremarkable. OTHER FINDINGS: None. IMPRESSION: 1. THERE IS A MINIMALLY DISPLACED FRACTURE OF THE RIGHT SUPERIOR PUBIC RAMUS. 2. THE LEFT-SIDED HIP FRACTURE NOTED ON THE PRELIMINARY ED ASSESSMENT IS NOT CLEARLY VISUALIZED ON THE CURRENT EXAMINATION. 3. THERE IS DIFFUSE OSTEOPENIA, WHICH MAY RENDER A NONDISPLACED FRACTURE RADIOGRAPHICALLY OCCULT. 4. X-RAYS MAY BE NEGATIVE WITH NONDISPLACED HIP FRACTURE, IF THERE IS PERSISTENT CLINICAL CONCERN, RECOMMEND CONSIDERATION OF MRI. IN THE SETTING OF CONTRAINDICATION TO MRI OR LIMITATION IN EMERGENT ACCESS TO MRI, CT WOULD BE SUGGESTED.
[2017-08-02] MEDS ORDERED: Potassium Chloride IV* 40 MEQ in NS 0.9% 250 ML* 250 ML IVPB ONE (08:30)
[2017-08-02] MEDS ORDERED: NS 0.9% 250 ML* 250 ML ONE (08:40)
--- NOTE | 2017-08-02 08:54 | PN ---
Hospitalist Progress Note Date of Service: 08/02/17 Seen and examined by me this morning, I am assuming his care today. He is unable to give me a ROS and unable to tell me why he is here. He denies pain. On exam, vitals are normal except a temp of 101. he is drowsy but alerts to voice, is disoriented (documentation from billy says baseline is orientation to person only). Telemetry shows frequent ectopy on the amiodarone drip. He has a resting tremor diffusely. Mucosa is dry, he follows commands. No lymphadenopathy. HR is irregular, lungs have few rhonchi anteriorly, abd is soft nontender nondistended. He has good passive range of motion in both hips, though he slightly resists hip flexion in the right hip. Distal pulses are in tact. A/P: Fall--he is unable to tell me anything about the fall. I will call his this morning. Hip CT pending; evaluated by Dr. Shannon in the ED. Orthostasis vs. VT vs. infection? Unclear if the fall was the cause or the result of the following problems. NSVT--I cannot pull up telemetry from the ED; ekg shows 4 beats VT and he is having ectopy on tele now, but I cannot see the events that led to initiation of amio in the ED. TTE is pending. I am repleting K and checking mag. It is possible he had a cardiac event that caused the fall. Consult cardiology. Trend troponins. Fever--check blood cultures, continue levaquin for possible pneumonia on cxr, check sputum cx, check ua NPO--failed swallow eval; needs ongoing evaluation CXR findings--atypical pneumonia, inflammatory process, or metastatic disease. CT pending. Parkinson disease--carbidopa/levodopa. seems to be at baseline from a dementia standpoint based on billy's documentation [facility]--guarded prognosis; need to discuss with his
[2017-08-02] MEDS ORDERED: KCL 20 MEQ/100 ML IVPREMIX* 20 MEQ/100 ML BAG IV SCH (09:00)
[2017-08-02] MEDS ORDERED: Potassium Chlor TAB* 20 MEQ TAB.ER PO SCH (09:00)
[2017-08-02] MEDS: Fludrocortisone Acetate TAB* 0.1 MG PO SCH (09:26)
[2017-08-02] MEDS: Carbidopa/Levodop 25/100 MG TAB(*) PO SCH ×3 (09:26→21:22)
[2017-08-02] MEDS: Docusate CAP* 100 MG PO SCH ×2 (09:26→21:22)
[2017-08-02] MEDS ORDERED: Iodixanol* (CONTRAST) 320 MG/ML 100 ML SDV IV ONE (10:29)
--- NOTE | 2017-08-02 10:55 | RAD ---
HISTORY: Metastatic disease versus multifocal pneumonia COMPARISONS: Chest x-ray dated August 01, 2017, film dated August 01, 2017, CT of the abdomen and pelvis dated February 05, 2009 TECHNIQUE: Multiple contiguous axial CT scans were obtained of the chest, abdomen, and pelvis after the administration of intravenous contrast. Coronal and sagittal multiplanar reformations are submitted for review.. Oral contrast was administered. Delayed images were obtained through the abdomen and pelvis. FINDINGS: The study is limited by patient motion artifact. CHEST NECK AND THYROID: The lower neck and thyroid are unremarkable. CHEST WALL: There is no lower cervical, axillary, or supraclavicular lymphadenopathy by size criteria. HEART AND PERICARDIUM: Coronary and valvular cardiac calcifications are noted. AORTA AND PULMONARY VASCULATURE: There is calcification of the thoracic aorta. The pulmonary vasculature is unremarkable. MEDIASTINUM: There is no mediastinal lymphadenopathy by size criteria. MAXI: There is no hilar lymphadenopathy by size criteria. AIRWAY AND ESOPHAGUS: The airway is unremarkable, without endobronchial filling defect. The esophagus is grossly normal. LUNG PARENCHYMA: There is compressive atelectasis of the lower lungs bilaterally. There is multifocal groundglass opacification in both lungs. PLEURA: There are large bilateral pleural effusions. This also includes the biapical pleural thickening noted on radiography. BONES AND SOFT TISSUES: Degenerative changes are noted of the spine. ABDOMEN/PELVIS: LIVER: The liver is normal in shape, size, contour, and attenuation. BILE DUCTS: There is no intrahepatic or extrahepatic biliary dilatation. GALLBLADDER: The gallbladder is normal, without pericholecystic inflammatory change. PANCREAS: The pancreas is normal, without mass or ductal dilatation. SPLEEN: Normal in size and appearance. UPPER GI TRACT: Evaluation of the gastrointestinal tract is limited by incomplete gastric distention. The upper GI tract is unremarkable. SMALL BOWEL & MESENTERY: The small bowel is normal in contour, course, and caliber. There is no obstruction or dilatation. COLON: The colon is normal in contour, course, caliber. There is no pericolonic inflammatory change. There is large amount of stool within the colon. There are multiple diverticula of the descending colon. ADRENALS: Normal bilaterally. KIDNEYS: The kidneys are normal in shape, size, contour, and axis. There is no hydronephrosis or nephrolithiasis. BLADDER: The bladder is smooth in contour. PELVIC ORGANS: The prostate is diffusely enlarged. The seminal vesicles are symmetric. AORTA: There is calcific atherosclerotic disease of the abdominal aorta and its branches, without aneurysmal dilatation IVC: Unremarkable LYMPH NODES: There is no lymphadenopathy by size criteria. ABDOMINAL WALL: There is no evidence for abdominal wall hernia. BONES AND SOFT TISSUES: There are nondisplaced fractures of the right superior and inferior pubic rami. There is a nondisplaced fracture of the transverse process of L5 on the right. There is a nondisplaced fracture through the right sacral ala. Degenerative changes are noted of the spine. OTHER: None IMPRESSION: 1. NONDISPLACED FRACTURES OF THE RIGHT SUPERIOR AND INFERIOR PUBIC RAMI. ADDITIONALLY, THERE ARE NONDISPLACED FRACTURES OF THE TRANSVERSE PROCESS OF L5 ON THE RIGHT AND OF THE RIGHT SACRAL ALA. 2. LARGE BILATERAL PLEURAL EFFUSIONS. 3. THERE IS PATCHY AIRSPACE DISEASE THROUGHOUT BOTH LUNGS. RECOMMEND FOLLOW-UP UNTIL RESOLUTION TO EXCLUDE UNDERLYING PULMONARY PARENCHYMAL PATHOLOGY. 4. THERE ARE MULTIPLE RIGHT-SIDED COLONIC DIVERTICULA WITHOUT PERICOLONIC INFLAMMATORY CHANGE. 5. ATHEROSCLEROSIS.
[2017-08-02] MEDS: Morphine VIAL* 4 MG/ML VIAL (1 ml vial) IV PRN ×2 (11:33→21:22)
--- NOTE | 2017-08-02 14:24 | ECHO ---
Patient: LIZA CERVANTES [facility] Rec#: [id number] : 1925 Date: 08/02/2017 Age: 89y Height: 172.72 cm / 68.0 in Weight: 79.83 kg / 175.9 lbs Sex: M BSA: 1.94 Room#: [facility] Admit Date#: 08/01/2017 Type: Inpatient Referring: Trang Farley MD Reading: Yulissa Vinson MD Size Stamper: Viktoria SchwarzKATHYA CC: Lulu Jules MD Transthoracic Echocardiogram Indication: Non sustained SVT. 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 Technical Comments: The study quality is good. Completed at 1010. Left Ventricle: The left ventricular chamber size is normal. There is no left ventricular hypertrophy. There is global hypokinesis of the left ventricle with minor regional variation. There is severely decreased left ventricular systolic function. The estimated ejection fraction is less than 20%. There is septal flattening of the interventricular septum consistent with right ventricular volume or pressure overload. There is no consistent Doppler evidence of clinically significant diastolic dysfunction. Left Atrium: The left atrium is moderate to severely dilated. Right Ventricle: The right ventricle is moderately dilated. The right ventricular global systolic function is moderately reduced. Right Atrium: The right atrium is moderate to severely dilated. Aortic Valve: The aortic valve is trileaflet. The aortic valve leaflets are moderately thickened. Systolic excursion of the aortic valve cusps is reduced. There is evidence of aortic sclerosis without stenosis. There is a trace of aortic regurgitation. There is no evidence of aortic stenosis. Mitral Valve: There is mitral annular calcification. The mitral valve leaflets are mildly thickened. There is moderate mitral regurgitation. There is no evidence of mitral stenosis. Tricuspid Valve: The tricuspid valve leaflets are normal. There is moderate tricuspid regurgitation. The right ventricular systolic pressure is estimated at 39 mmHg. There is evidence of mild pulmonary hypertension. There is no tricuspid stenosis. Pulmonic Valve: The pulmonic valve appears normal. There is mild pulmonic regurgitation. There is no pulmonic stenosis. Pericardium: There is no significant pericardial effusion. There are no signs of significant hemodynamic compromise. A left pleural effusion is present. Aorta: There is no dilatation of the ascending aorta. There is no dilatation of the aortic arch. The aortic root is normal in size. Pulmonary Artery: The main pulmonary artery appears normal. Venous: The inferior vena cava is dilated. There is an approximate 50% respiratory change in the inferior vena cava dimension. Summary: There was not any prior study for comparison. Conclusions The left ventricular chamber size is normal. There is global hypokinesis of the left ventricle with minor regional variation. There is severely decreased left ventricular systolic function. The estimated ejection fraction is less than 20%. There is septal flattening of the interventricular septum consistent with right ventricular volume or pressure overload. The left atrium is moderate to severely dilated. The right ventricle is moderately dilated. There is a trace of aortic regurgitation. There is moderate mitral regurgitation. There is moderate tricuspid regurgitation. The right ventricular systolic pressure is estimated at 39 mmHg. There is evidence of mild pulmonary hypertension. There is mild pulmonic regurgitation. A left pleural effusion is present. There is no significant pericardial effusion. Measurements Name Value Normal Range RVIDd (AP) 2D 3.1 cm (0.9 - 2.6) RVDdMajor (2D) 5.1 cm (2.2 - 4.4) RAd ISD 4CH 5.6 cm (3.4 - 4.9) RA (A4C)W 4.5 cm (2.9 - 4.6) IVSd (2D) 1 cm (0.6 - 1) LVPWd (2D) 0.9 cm (0.6 - 1) LVIDd (2D) 5.2 cm (3.6 - 5.4) LVIDs (2D) 4.9 cm - LV FS (2D) 5 % (25 - 45) Aortic Annulus 2.1 cm (1.4 - 2.6) Ao root diameter (2D) 3.5 cm (2.1 - 3.5) Ascending Ao 3.3 cm (2.1 - 3.4) Aortic arch 2.3 cm (1.8 - 3.4) LA dimension (AP) 2D 3.7 cm (2.3 - 3.8) LAd ISD 4CH 5.9 cm (2.9 - 5.3) LA ISD 4CH W 4.9 cm (2.5 - 4.5) Name Value Normal Range LA ESV SP 4CH (A/L) 87 ml - LA ESV SP 2CH (A/L) 139 ml - LA ESV BP (A/L) 110 ml - LA ESV BP (A/L) index 57 ml/m2 - LA ESV SP 4CH (MOD) 79 ml - LA ESV SP 2CH (MOD) 129 ml - Name Value Normal Range MV E-wave Vmax 0.95 m/sec - MV deceleration time 123.1 msec - MV A-wave Vmax 0.68 m/sec - MV E:A ratio 1.41 ratio - LV septal e' Vmax 0.04 m/sec - LV lateral e' Vmax 0.05 m/sec - LV E:e' septal ratio 23.75 ratio - LV E:e' lateral ratio 19 ratio - Name Value Normal Range AV Vmax 1.25 m/sec - AV VTI 28.15 cm - AV peak gradient 6.3 mmHg - AV mean gradient 4.29 mmHg - LVOT diameter 2.1 cm - LVOT Vmax 0.77 m/sec - LVOT VTI 15.24 cm - LVOT peak gradient 2.41 mmHg - LVOT mean gradient 1.36 mmHg - SHEILA Vmax 0.25 m/sec - Name Value Normal Range MR Vmax 4.7 m/sec - MR VTI 158.1 cm - MR flow (PISA) 114.6 ml/sec - MR ERO 0.24 cm2 - MR PISA radius 0.7 cm - MR alias Vmax 38 cm/sec - Name Value Normal Range TR Vmax 2.8 m/sec - TR peak gradient 31 mmHg - RAP 8 mmHg - RVSP 39 mmHg - IVC diameter 2.1 cm - Name Value Normal Range PV Vmax 0.8 m/sec - PV peak gradient 2.65 mmHg - IA end-diastolic Vmax 1.27 m/sec -
--- NOTE | 2017-08-02 17:55 | CONS ---
CC: Hospitalist service, Dr. Farley; Dr. Vinson; Dr. Jules. CARDIOLOGY CONSULT: DATE OF CONSULT: 08/02/17 HISTORY OF PRESENT ILLNESS: I was asked by Dr. Farley from the hospitalist service to see this 89-year-old male patient, who was admitted to the intensive care unit with status post fall and noticed to have significant ventricular ectopy, possible nonsustained V-tach. He was started on amiodarone IV drip loading. The patient is an 89-year-old male patient with DNR status and history of dementia. He does have Alzheimer's dementia, Parkinson's disease, adrenal insufficiency, squamous cell CA of the mandible, and benign prostatic hypertrophy, status post TURP that his past medical history. Apparently, he had a fall and there is a nondisplaced very minimal fracture in the hip area. I was asked from cardiac standpoint to see him because of very frequent ventricular ectopy. The patient is with dementia, he is only oriented to himself, but there is no history of myocardial infarction, no history of congestive heart failure, no history of documented coronary artery disease, and no history of cardiomyopathy. He is in sinus rhythm with frequent bigeminy and PVCs. Amiodarone IV drip is going with loading. There is no nausea, no vomiting. No fever, no chills. No hematochezia. No skin rash. No abdominal pain is appreciated. PAST MEDICAL HISTORY: As mentioned above. MEDICATIONS: At the present time include: 1. Tylenol 650 mg p.o. q.6 hours p.r.n. 2. Amiodarone loading. 3. Carbidopa and levodopa 1 p.o. t.i.d. 4. Colace 200 mg b.i.d. 5. Florinef 0.1 mg daily. 6. Levaquin 750 mg. 7. Melatonin. 8. Morphine 2 mg IV q.4 hours p.r.n. 9. Omeprazole 20 mg daily. 10. Potassium 20 mEq daily. 11. Tramadol 50 mg p.o. q.6 hours p.r.n. for pain. ALLERGIES: Allergic to PENICILLIN. FAMILY HISTORY: Unobtainable. SOCIAL HISTORY: No history of alcoholism or tobacco or drug abuse. REVIEW OF SYSTEMS: Review of all other systems essentially difficult to obtain as the patient has dementia. The most of the medical information were obtained from Dr. Farley as well as from the H and P by Dr. Nascimento of the hospitalist service. PHYSICAL EXAM: He is arousable to stimuli, but most of the time he is sleepy. Vitals: Blood pressure is 110/38, pulse is 74 and he is in sinus, he is afebrile, respiratory rate is 20. Head and Neck Exam: Normocephalic, atraumatic head. Ears, Nose, and Throat: Essentially benign. Neck: Supple. JVP is not elevated. No carotid bruits. Chest: Diminished air entry at the bases. No rales. No wheezes. Heart: Normal S1, S2 with frequent ventricular ectopy. Grade 2/6 systolic murmur in the apex. Abdomen: Benign. Positive bowel sounds. Extremities: No edema, no cyanosis, no clubbing. Skin Exam: Normal. Psych: Difficult to evaluate because of his dementia. SPRAY UNIT FEEDER: No focal deficits appreciated. DIAGNOSTIC STUDIES/LAB DATA: Labs showed the patient to have hemoglobin 10.7, hematocrit 33, platelets 135. INR 1.14. Chemistry showed the patient to have sodium 141, potassium 3.6 and then 3.8, chloride 107, total CO2 of 26, BUN is 18 , creatinine 1.31. Magnesium 1.9. Troponin 0.20. Echocardiogram done today showed the patient to have globally severe reduced left ventricular systolic function with an EF of 20% or less. There is moderate mitral insufficiency, trace aortic insufficiency, biatrial enlargement , and moderate tricuspid insufficiency, mild pulmonary hypertension. EKG showed the patient to have sinus rhythm with frequent PVCs. IMPRESSION: The patient is an 89-year-old with: 1. Status post fall with documented frequent ventricular ectopy. 2. Severe cardiomyopathy globally with an EF of 20% or less of unknown duration. He is not overtly in congestive heart failure on physical exam. 3. Borderline troponin, probably related to his severe cardiomyopathy and stress of the fall and possible fracture, although acute coronary event cannot be completely excluded. 4. The patient with Alzheimer's disease. 5. The patient is DNR. 6. Moderate mitral insufficiency. 7. [id number] tricuspid insufficiency and mild pulmonary hypertension. PLAN: This patient is currently in the intensive care unit. He is on amiodarone drip for his ventricular ectopy, which is the appropriate antiarrhythmic medication at the present time given his severe cardiomyopathy. I discussed him with Dr. Farley from the hospitalist service. He is with dementia and he is DNR and the recommendation at the present time is continuing medical treatment. In light of his severe cardiomyopathy, I do recommend continuing his amiodarone loading and I do recommend initiating low dose beta- elizabeth and AMPARO inhibitor as tolerated, which was discussed with Dr. Farley. She will discuss with the family as the patient basically is only oriented to his name. Thank you very much for asking us to participate in the care of this patient. TIME SPENT: Total time for consultation is at least 65 plus minutes and discussing this further with Dr. Farley. [id number]/CPS #: [id number] FADI
--- NOTE | 2017-08-02 18:30 | PN ---
Progress Note - Progress Note Date of Service: 08/02/17 SOAP: Subjective: []Patient seen at bedside. He was aware but unable to participate in exam or conversation. Objective: [] General: Laying comfortably in bed RLE: Able to passively flex and extend at knee and hip with little difficulty but with more resistance than on the left, similarly log roll appears more uncomfortable on the right but still able to perform without sign of severe pain. No skin breakdown, no obvious dexter abnormality BL LE: Thighs soft, calves soft and nontender without erythema, edema or palpable cords Assessment: []Right inferior, superior Pubic rami fx Plan: []WBAT, mobilize when medically optimized to do so Ortho will continue to follow
--- NOTE | 2017-08-02 19:04 | PN ---
Hospitalist Progress Note Date of Service: 08/02/17 I came back to discuss the findings from the CT C/A/P and TTE with Mr. Medeiros's , his daughter, and his son. I explained that based on the ef of 20%, the large effusion of unclear etiology, the fall, pelvic fracture, worsening dementia and parkinsonism, I believe that a palliative approach is appropriate, and that focusing on Mr. Medeiros's quality of life should be a priority at this point, and his family is in complete agreement. They are very familiar with palliative and hospice services, and they would like to consider hospice care at [facility]. We discussed his npo status and the possibility of comfort feeds. They have another daughter who is in [place] and a son in [place], and they want to discuss this all with them before we make the official transition to comfort care, so for now we will continue the amio drip. Pain is controlled.
[2017-08-03] MEDS ORDERED: LORazepam INJ* 2 MG/ML 1 ML VIAL IV ONE (01:14)
[2017-08-03] MEDS: Morphine VIAL* 4 MG/ML VIAL (1 ml vial) IV PRN ×2 (04:30→12:53)
[2017-08-03] MEDS: Omeprazole CAP* 20 MG PO SCH (05:45)
[2017-08-03] MEDS: Acetaminophen SUPP* 650 MG SUPP PR PRN ×2 (06:14→14:13)
[2017-08-03] MEDS ORDERED: Potassium Chloride LIQUID* 20 MEQ PACKET PO SCH (08:28)
[2017-08-03] MEDS ORDERED: Docusate LIQ* 100 MG/10 ML UDC PO SCH (08:28)
[2017-08-03] MEDS: Carbidopa/Levodop 25/100 MG TAB(*) PO SCH ×2 (08:30→13:32)
[2017-08-03] MEDS: Fludrocortisone Acetate TAB* 0.1 MG PO SCH (08:30)
[2017-08-03 16:28] VITALS: BP 113/67
--- NOTE | 2017-08-03 16:33 | DS ---
CC: Dr. Jules DISCHARGE SUMMARY: DATE OF ADMISSION: 08/01/17 DATE OF DISCHARGE: 08/03/17 PRINCIPAL DISCHARGE DIAGNOSES: 1. End-of-life care. 2. Right pelvic fracture. 3. Cardiomyopathy of unspecified type. 4. Large pleural effusion. SECONDARY DISCHARGE DIAGNOSES: 1. Dementia. 2. Parkinsonism. 3. Benign prostate hyperplasia. HOSPITAL COURSE BY PROBLEM: 1. Fall. Mr. Medeiros has had an unwitnessed fall prior to admission. He is unable to provide any nd story about this fall; however, in the emergency department, he was complaining of right hip pain. A n initial x-ray was negative for hip fracture and a pelvic CT was obtained, which showed nondisplaced fractures of the right superior and inferior pubic rami as well as nondisplaced fractures of the tra nsverse process of L5 on the right and the right sacral ala. This was discussed with Orthopedic Surg catracho, who also evaluated the patient and they recommended nonoperative management and weightbearing as tolerated on the right lower extremity. His pain was well controlled with morphine during this admi ssion and he is being discharged home on p.o. morphine under hospice care. 2. Cardiomyopathy. At admission, his troponin was found to be elevated, so an echocardiogram was or dered and showed an EF of less than 20%. This was discussed with his family and further workup was n ot pursued given their desires for comfort care. 3. Nonsustained V-tach. This was witnessed in the emergency department on telemetry, so he was star [place] on an amiodarone drip and his ectopy was well controlled; however, again after discussion with nd s family and the decision for hospice care, the amiodarone drip was discontinued. I did explain to jimena barbosa that he has a risk for stable arrhythmias and they accept this risk. 4. Larger pleural effusion. He had been undergoing treatment for pneumonia and had ongoing evidence of left-sided pneumonia on his CT of the chest, so I suspect that this effusion was parapneumonic. I did discuss the possibility of a thoracentesis be it diagnostic and/or therapeutic with his family. However, since he was having no symptoms from the effusion and showed no evidence of shortness of b reath or increased work of breathing, we decided to defer a thoracentesis and continue him on supplem ental oxygen. He should be continued on oxygen indefinitely and should he develop worsening shortnes s of breath, a palliative thoracentesis can be considered. 5. Parkinsonism. He was continued on carbidopa and levodopa. 6. Benign prostate hyperplasia, status post urethral trauma. A Feliciano catheter was placed at the cr e of admission and Mr. Medeiros pulled it out and he was noted to have urethral trauma after this with penile bleeding. This has resolved; however, should be noted. DISPOSITION: After the imaging studies returned for Mr. Medeiros and showed a depressed EF of less hayley n 20%, a large pleural effusion, a right pelvic fracture, pneumonia, all in the setting of worsening parkinsonism and dementia, I discussed excessively his prognosis with his and his daughter. I s uggested that a palliative approach be considered and they were in complete agreement with comfort me asures for Mr. Medeiros and not pursuing any further invasive or diagnostic tests. To respect this, we are discontinuing antibiotics, antiarrhythmics, and continuing analgesics only. He will be continued on oxygen and a palliative thoracentesis can be considered should he develop work of breathing. ACTIVITY: Weightbearing as tolerated, right lower extremity. Please feel free to contact me at [phone] with any questions or concerns about Mr. Medeiros's admi ssion and discharge. PHYSICAL EXAM AT THE TIME OF DISCHARGE: Temperature 100.5, heart rate , respiratory rate 16, bl ood pressure 85/50. General: Elderly ill-appearing man, who occasionally moans in pain. HEENT: Pu pils are equal, round, and reactive to light. Dry oral mucosa. Neck: No JVP. No adenopathy. Ches t: Irregular rhythm. No murmurs. Decreased breath sounds on the left lung half way up the lung fiel d. Abdomen: Soft, nontender, and nondistended. Extremities: He has good range of motion in both hi ps; however, resists passive range of motion in the right hip. He has 2+ distal pulses bilaterally. [id number]/CPS #: [id number]
== END 2017-08-03 15:00 | disposition hospice, home (50) | DRG 552 ==
LOC: ED 21:12 → MED 23:49 → ICU 08-02 00:17
PROVIDERS: ADMIT Hospitalist; ATTEND Internal Medicine
DX: S32.110A Nondisplaced Zone I fracture of sacrum, initial encounter for closed fracture (principal); S32.591A Other specified fracture of right pubis, initial encounter for closed fracture; I47.2 Ventricular tachycardia; J90 Pleural effusion, not elsewhere classified; I42.9 Cardiomyopathy, unspecified; W19.XXXA Unspecified fall, initial encounter; G31.83 Neurocognitive disorder with Lewy bodies; F02.80 Dementia in other diseases classified elsewhere, unspecified severity, without behavioral disturbance, psychotic disturbance, mood disturbance, and anxiety; Z96.653 Presence of artificial knee joint, bilateral; N36.8 Other specified disorders of urethra; G30.9 Alzheimer's disease, unspecified; Z51.5 Encounter for palliative care; N40.0 Benign prostatic hyperplasia without lower urinary tract symptoms; M19.90 Unspecified osteoarthritis, unspecified site; Z66 Do not resuscitate; I08.3 Combined rheumatic disorders of mitral, aortic and tricuspid valves; I27.20 Pulmonary hypertension, unspecified; R25.1 Tremor, unspecified; Z88.0 Allergy status to penicillin; Z87.442 Personal history of urinary calculi; Z85.818 Personal history of malignant neoplasm of other sites of lip, oral cavity, and pharynx; Y92.129 Unspecified place in nursing home as the place of occurrence of the external cause; Z99.81 Dependence on supplemental oxygen
CPT/HCPCS: 36415; 70450; 71045; 71260; 72125; 74177; 80048; 80053; 82550; 83605; 83735; 84132; 84450; 84484; 85025; 85610; 85730; 86850; 86900; 86901; 87040; 87502; 87641; 90715; 93005; 93306; 94760; 99291; A9270-GY; J0282; J2060; J2270; J3010; J3480; Q9967